=== PATIENT | female | born 1955 | race Caucasian/White ===

== ENCOUNTER 2017-04-01 06:18 | Day surgery (SDC) | payer OTHER ==
[~2017-04-01] VITALS: Ht 167.6 cm; Wt 87.3 kg
[~2017-04-01 06:18] MED LIST: DICLOFENAC; GABA-526 PO; METF500T4 PO; NEXIUM; ZOFRAN
[2017-04-01 06:41] VITALS: Ht 167.6 cm; Wt 87.3 kg
[2017-04-01] MEDS ORDERED: PROPOFOL 40 ML ONE (07:32)
[2017-04-01] MEDS ORDERED: LIDOCAINE 2% (SDV) 5 ML INJ ONE (07:32)
[2017-04-01 07:46] VITALS: BP 125/66; PULSE 72; RESP 18
--- NOTE | 2017-04-01 08:24 | OPPN ---
Date/Time of Note Date/Time of Note DATE: 04/01/17 TIME: 08:23 Operative Report Preoperative Diagnosis Change in bowel habit Postoperative Diagnosis Diverticulosis of the colon Internal hemorrhoids Operation/Procedure Performed Colonoscopy Provider: MICHAEL PAREKH MD Anesthesia Type: MAC Estimated blood loss: none Transfusion Required: no Specimen: none Grafts/Implants: none Complications: no MICHAEL PAREKH MD Apr 01, 2017 08:24
[2017-04-01 08:44] VITALS: BP 106/50; PULSE 64; RESP 14
--- NOTE | 2017-04-01 13:27 | GILP ---
DATE OF PROCEDURE: 04/01/2017 PROCEDURE PERFORMED: Colonoscopy. SURGEON: Asher Sierra MD PREOPERATIVE DIAGNOSIS: 1. Change in bowel habits. 2. Lower abdominal pain. POSTOPERATIVE DIAGNOSES: 1. Colonoscopy all the way to the cecum. 2. Diverticulosis of the colon. 3. Internal hemorrhoids. 4. No colon neoplasm was identified. INDICATION: The patient is a 61-year-old female patient who noticed change in bowel habits associated with lower abdominal pain. The patient was scheduled for colonoscopy for further evaluation. The procedure and possible complications were well explained to the patient. The patient understood and consented to the procedure. DESCRIPTION OF PROCEDURE: Under influence of anesthesia, the colonoscope was carefully introduced in the rectum. Under direct vision, it was advanced all the way to the cecum. FINDINGS: The patient had diverticulosis of the colon. She also had internal hemorrhoids. No colon neoplasm was identified. She tolerated the procedure very well. There was no complication from the procedure. At the end of procedure, she was awake with stable vital signs and she was discharged home in the care of her family. For impression, please see postop diagnoses. PLAN: 1. High-fiber diet. 2. Next screening colonoscopy in 10 years. Dictated By: MD TANYA Eller/kelsie/savi /Document#: [id number]
== END 2017-04-01 12:04 | disposition home or self-care (01) ==
LOC: GIL 06:18
PROVIDERS: ATTEND Internal Medicine Gastroenterology
DX: R19.4 Change in bowel habit (principal); K57.90 Diverticulosis of intestine, part unspecified, without perforation or abscess without bleeding; K64.8 Other hemorrhoids; E11.9 Type 2 diabetes mellitus without complications; E66.9 Obesity, unspecified; Z68.31 Body mass index [BMI] 31.0-31.9, adult
CPT/HCPCS: 45378; 82962; Z7610

== ENCOUNTER 2019-02-17 11:28 | Day surgery (SDC) | payer OTHER ==
[~2019-02-17] VITALS: Ht 165.1 cm; Wt 90.4 kg
[~2019-02-17 11:28] MED LIST changes: +DULOXETINE; +INSULIN; +METF-849 PO; -METF500T4 PO; +MIRALAX; +OMEGA 3; +OMEPRAZOLE; +SIMVASTATIN; +TRAMADOL
[2019-02-17 12:14] VITALS: Ht 165.1 cm; Wt 90.4 kg
[2019-02-17 12:34] VITALS: BP 115/55; PULSE 69; RESP 21
--- NOTE | 2019-02-17 13:21 | PREAC ---
Date/Time of Note Date/Time of Note DATE: 02/17/19 TIME: 13: Anesthesia Eval and Record Evaluation Time Pre-Procedure Interview DATE: 02/17/19 TIME: 13:19 Age 63 Sex female NPO: 8 hrs Preoperative diagnosis Abdominal pain Planned procedure EGD Past Medical History Past Medical History: Includes Cardio: HTN, Dyslipidemia Endo: Diabetes Musculoskeletal: Osteoarthritis Hepatic: Alcohol abuse GI: Morbid obesity Surgery & Anesthesia Issues No known issue Meds Anticoagulation: No Beta Juliette within 24 hr: No Reason Beta Juliette not given: Pt. not on B-Juliette Reported Medications [Diclofenac] No Conflict Check 04/17/16 [Nexium] No Conflict Check 04/17/16 [Zofran] No Conflict Check 04/17/16 Gabapentin* (Gabapentin*) 600 Mg Tablet, 600 MG PO BID, TAB 03/16/14 Metformin* (Glucophage*) 500 Mg Tab, 500 MG PO BID, TAB 03/16/14 Meds reviewed: Yes Allergies Coded Allergies: No Known Allergy (Unverified , 03/21/16) Allergies Reviewed: Yes Labs/Studies Labs Reviewed: Reviewed by anesthesiologist test: N/A Studies: ECG Pre-procedure Exam Last vitals Vital Signs Date Temp Pulse Resp B/P (MAP) Pulse Ox O2 O2 Flow FiO2 Time Delivery Rate 02/17/19 97.7 69 21 115/55 97 Room Air 12:34 (75) Airway: Adequate mouth opening, Adequate thyromental dist Mallampati: Mallampati III Teeth: Normal Lung: Normal Heart: Normal ASA Physical Status ASA physical status: 3 Emergency: None Planned Anesthetic General/MAC: MAC Planned Pain Management Parenteral pain med Pre-operative Attestations Prior to commencing anesthesia and surgery, the patient was re-evaluated, there was verification of: *The patient's identity *The results of appropriate recent lab work and preoperative vital signs *The above evaluation not changing prior to induction *Anesthetic plan, risk benefits, alternative and complications discussed with patient/family; questions answered; patient/family understands, accepts and wishes to proceed. SIM PEREYRA MD Feb 17, 2019 13:21
[2019-02-17] MEDS ORDERED: PROPOFOL 40 ML ONE (13:25)
[2019-02-17] MEDS ORDERED: LIDOCAINE 2% (SDV) 5 ML INJ ONE (13:26)
--- NOTE | 2019-02-17 13:47 | PAC ---
Date/Time of Note Date/Time of Note DATE: 02/17/19 TIME: 13:47 Post-Anesthesia Notes Post-Anesthesia Note Last documented vital signs Vital Signs Date Temp Pulse Resp B/P (MAP) Pulse Ox O2 O2 Flow FiO2 Time Delivery Rate 02/17/19 97.7 69 21 115/55 97 Room Air 12:34 (75) Activity: WNL Respiratory function: WNL Cardiovascular function: WNL Mental status: Baseline Pain reasonably controlled: Yes Hydration appropriate: Yes Nausea/Vomiting absent: Yes Comments BP:106/56, P:77, Spo2:100%, T:98,8 SIM PEREYRA MD Feb 17, 2019 13:47
[2019-02-17 14:04] VITALS: BP 125/67; PULSE 68; RESP 16
== END 2019-02-17 16:02 | disposition home or self-care (01) ==
LOC: GIL 11:28
PROVIDERS: ATTEND Internal Medicine Gastroenterology
DX: K29.30 Chronic superficial gastritis without bleeding (principal); I10 Essential (primary) hypertension; E11.9 Type 2 diabetes mellitus without complications; E78.5 Hyperlipidemia, unspecified; E66.9 Obesity, unspecified; Z68.33 Body mass index [BMI] 33.0-33.9, adult
CPT/HCPCS: 43239; 82962; 88305; 88312; Z7610